=== PATIENT | female | born 1990 | race African-American/Black ===

== ENCOUNTER 2018-12-10 07:37 | Emergency (ER) | payer MEDICAID ==
[~2018-12-10] VITALS: Ht 157.5 cm; Wt 130.0 kg
[2018-12-10 07:39] VITALS: BP 106/67
[2018-12-10] MEDS ORDERED: QUET100T MT (22:44)
[2018-12-10] MEDS ORDERED: BUPR150T3 MT (22:44)
[2018-12-10] MEDS ORDERED: TRAZ-212 MT (22:44)
== END 2018-12-10 07:48 | disposition left against medical advice (07) ==
LOC: ER 07:44
DX: R06.02 Shortness of breath (principal); Z53.21 Procedure and treatment not carried out due to patient leaving prior to being seen by health care provider

== ENCOUNTER 2018-12-10 08:34 | Inpatient (IN) | payer MEDICAID, OTHER ==
[~2018-12-10] VITALS: Ht 160 cm; Wt 64.4 kg
[2018-12-10] MEDS ORDERED: KETOROLAC 60MG/2ML VIAL IM ONE ×2 (09:30→11:45)
[2018-12-10] MEDS ORDERED: ACETAMINOPHEN 325MG TABLET PO ONE (09:45)
[2018-12-10 10:44] LABS: *BARBITURATES SCREEN URINE NEGATIVE (NEGATIVE); *BENZODIAZEPINES SCREEN URINE NEGATIVE (NEGATIVE); METHADONE URINE SCREEN NEGATIVE (NEGATIVE); OPIATES URINE SCREEN NEGATIVE (NEGATIVE)
[2018-12-10 10:45] LABS: PHENCYCLIDINE URINE SCREEN NEGATIVE (NEGATIVE)
[2018-12-10 10:53] LABS: *AMPHETAMINES SCREEN URINE PRESUMTIVE POSITIVE (NEGATIVE); *COCAINE SCREEN URINE PRESUMTIVE POSITIVE (NEGATIVE)
[2018-12-10 10:56] LABS: CANNABINOID URINE SCREEN PRESUMTIVE POSITIVE (NEGATIVE)
[2018-12-10] MEDS ORDERED: SODIUM CHLORIDE 0.9% 1,000 ML IV ONE (11:53)
[2018-12-10] MEDS ORDERED: ETOMIDATE 2MG/ML 10ML VIAL IV ONE (12:00)
[2018-12-10] MEDS ORDERED: HYDROCODONE/ACETAMINOPHEN 5/325MG TABLET PO ONE (12:00)
[2018-12-10] MEDS ORDERED: MORPHINE SULFATE 4 MG/ML CPJ (NOT FOR IM USE) IV ONE (12:30)
[2018-12-10] MEDS ORDERED: ONDANSETRON HCL 4MG/2ML INJ IV ONE (12:30)
[2018-12-10 12:32] LABS: CHLORIDE 107 mEq/L (98-107)
[2018-12-10 12:37] LABS: BASOPHILS % 0.4 % (0.0-2.0); EOSINOPHILS % 0.1 % (0.0-5.0); HEMATOCRIT. 41.5 % (36.0-48.0); LYMPHOCYTES % 10.1 % (20.0-50.0); MEAN CORPUSCULAR HEMOGLOBIN 30.7 pg (28.0-32.0); MEAN CORPUSCULAR VOLUME 90.9 fL (81.0-99.0); MEAN PLATELET VOLUME 8.8 fl (7.4-10.4); MONOCYTES % 6.9 % (2.0-8.0); NEUTROPHILS % 82.5 % (40.0-76.0); PLATELET 277 x1000/uL (130-400); RED BLOOD CELL COUNT 4.57 mill/uL (4.2-5.4); RED CELL DISTRIBUTION WIDTH 13.7 % (11.6-14.6)
[2018-12-10] MEDS ORDERED: LORAZEPAM 2MG/ML CPJ ONE (12:43)
[2018-12-10] MEDS ORDERED: LORAZEPAM 2MG/ML CPJ IV ONE (12:45)
[2018-12-10 12:52] LABS: PARTIAL THROMBOPLASTIN TIME 24.4 sec (23.4-31.0); PROTHROMBIN TIME 10.5 sec (9.6-11.0)
[2018-12-10] MEDS ORDERED: KETOROLAC 30MG/ML VIAL IV ONE (14:45)
[2018-12-10] MEDS: MORPHINE SULFATE 4 MG/ML CPJ (NOT FOR IM USE) IV PRN (20:16)
[2018-12-10] MEDS ORDERED: MORPHINE SULFATE 2 MG/ML CPJ (NOT FOR IM USE) IV PRN (21:45)
[2018-12-10 22:00] VITALS: BP 128/86
[2018-12-10] MEDS ORDERED: TRAZ-212 MT (22:44)
[2018-12-10] MEDS ORDERED: QUET100T MT (22:44)
[2018-12-10] MEDS ORDERED: BUPR150T3 MT (22:44)
[2018-12-11] VITALS: BP 113/61
[2018-12-11] MEDS: ONDANSETRON HCL 4MG TABLET PO PRN ×3 (00:22→21:17)
[2018-12-11] MEDS: MORPHINE SULFATE 4 MG/ML CPJ (NOT FOR IM USE) IV PRN ×3 (00:34→18:31)
[2018-12-11] MEDS: HYDROCODONE/ACETAMINOPHEN 5/325MG TABLET PO PRN ×3 (03:45→21:18)
[2018-12-11 04:00] VITALS: BP 118/75
[2018-12-11 08:00] VITALS: BP 113/80
[2018-12-11 12:02] VITALS: BP 110/59
[2018-12-11 16:00] VITALS: BP 98/60
[2018-12-11] MEDS ORDERED: BUPROPION HCL 150MG SR TABLET PO SCH (17:00)
[2018-12-11 18:39] LABS: CLARITY URINE CLEAR (CLEAR); COLOR URINE YELLOW (YELLOW); KETONES URINE NEGATIVE (NEGATIVE); LEUKOCYTE ESTERASE URINE TRACE (NEGATIVE); NITRITE URINE NEGATIVE (NEGATIVE); OCCULT BLOOD URINE 1+ (NEGATIVE); PH URINE 5.5 (4.5-8.0); PROTEIN URINE NEGATIVE (NEGATIVE); SPECIFIC GRAVITY URINE 1.004 (1.005-1.030); UROBILINOGEN URINE 0.2 E.U./dL (0.2-1.0)
[2018-12-11 19:14] LABS: BASOPHILS % 0.6 % (0.0-2.0); EOSINOPHILS % 0.8 % (0.0-5.0); HEMATOCRIT. 38.1 % (36.0-48.0); HEMOGLOBIN. 12.8 g/dL (12.0-16.0); LYMPHOCYTES % 15.3 % (20.0-50.0); MEAN CORPUSCULAR HEMOGLOBIN 30.8 pg (28.0-32.0); MEAN CORPUSCULAR VOLUME 91.2 fL (81.0-99.0); MEAN PLATELET VOLUME 9.1 fl (7.4-10.4); MONOCYTES % 10.2 % (2.0-8.0); NEUTROPHILS % 73.1 % (40.0-76.0); PLATELET 230 x1000/uL (130-400); RED BLOOD CELL COUNT 4.18 mill/uL (4.2-5.4); RED CELL DISTRIBUTION WIDTH 13.3 % (11.6-14.6)
[2018-12-11 20:00] VITALS: BP 101/63
[2018-12-11] MEDS: BUPROPION HCL 150MG SR TABLET PO SCH (20:00)
[2018-12-11] MEDS: QUETIAPINE FUMARATE 100MG TABLET PO SCH (21:18)
[2018-12-11] MEDS: TRAZODONE HCL 50MG TABLET PO SCH (21:18)
[2018-12-12] VITALS: BP 99/58
[2018-12-12 04:00] VITALS: BP 99/59
[2018-12-12 08:00] VITALS: BP 97/53
[2018-12-12] MEDS: BUPROPION HCL 150MG SR TABLET PO SCH ×2 (08:21→20:52)
[2018-12-12] MEDS ORDERED: BACITRACIN 50,000 UNITS/VIAL ONE (09:11)
[2018-12-12] MEDS ORDERED: NORMAL SALINE 0.9% 10 ML SYR ONE (09:11)
[2018-12-12] MEDS ORDERED: VANCOMYCIN HCL 500 MG/VIAL ONE (09:11)
[2018-12-12] MEDS ORDERED: BUPIVACAINE HCL/PF 0.25% (2.5MG/ML) 10ML ONE (09:11)
[2018-12-12 10:11] LABS: *AMPHETAMINES SCREEN URINE NEGATIVE (NEGATIVE); *BARBITURATES SCREEN URINE NEGATIVE (NEGATIVE); *BENZODIAZEPINES SCREEN URINE NEGATIVE (NEGATIVE); METHADONE URINE SCREEN NEGATIVE (NEGATIVE)
[2018-12-12 10:12] LABS: CANNABINOID URINE SCREEN NEGATIVE (NEGATIVE); PHENCYCLIDINE URINE SCREEN NEGATIVE (NEGATIVE)
[2018-12-12 10:18] LABS: *COCAINE SCREEN URINE PRESUMTIVE POSITIVE (NEGATIVE)
[2018-12-12 10:19] LABS: OPIATES URINE SCREEN PRESUMTIVE POSITIVE (NEGATIVE)
[2018-12-12] MEDS: MORPHINE SULFATE 4 MG/ML CPJ (NOT FOR IM USE) IV PRN ×2 (10:21→18:00)
[2018-12-12] MEDS: SODIUM CHLORIDE 0.9% 1,000 ML IV SCH ×2 (11:52→18:09)
[2018-12-12] MEDS: ENOXAPARIN 30MG/0.3ML SYR SUBCUT SCH (11:52)
[2018-12-12] MEDS: HYDROCODONE/ACETAMINOPHEN 5/325MG TABLET PO PRN ×2 (11:58→20:44)
[2018-12-12 12:00] VITALS: BP 101/61
[2018-12-12 13:14] LABS: BASOPHILS % 0.8 % (0.0-2.0); EOSINOPHILS % 3.1 % (0.0-5.0); HEMOGLOBIN. 11.9 g/dL (12.0-16.0); LYMPHOCYTES % 22.9 % (20.0-50.0); MEAN CORPUSCULAR HEMOGLOBIN 30.2 pg (28.0-32.0); MEAN CORPUSCULAR VOLUME 91.2 fL (81.0-99.0); MEAN PLATELET VOLUME 8.4 fl (7.4-10.4); MONOCYTES % 11.6 % (2.0-8.0); NEUTROPHILS % 61.6 % (40.0-76.0); PLATELET 226 x1000/uL (130-400); RED BLOOD CELL COUNT 3.94 mill/uL (4.2-5.4); RED CELL DISTRIBUTION WIDTH 13.4 % (11.6-14.6)
[2018-12-12 13:23] LABS: CHLORIDE 109 mEq/L (98-107)
[2018-12-12 13:30] LABS: PHOSPHORUS 4.3 mg/dL (2.5-4.9)
[2018-12-12 14:09] LABS: CREATINE KINASE 12029 IU/L (26-192)
[2018-12-12 16:00] VITALS: BP 90/64
[2018-12-12 20:00] VITALS: BP 96/59
[2018-12-12] MEDS: QUETIAPINE FUMARATE 100MG TABLET PO SCH ×2 (20:43→20:51)
[2018-12-12] MEDS: TRAZODONE HCL 50MG TABLET PO SCH ×2 (20:44→20:51)
[2018-12-13] VITALS: BP 105/66
[2018-12-13] MEDS: HYDROCODONE/ACETAMINOPHEN 5/325MG TABLET PO PRN ×4 (01:41→20:02)
[2018-12-13 04:00] VITALS: BP 93/50
[2018-12-13 06:10] LABS: BASOPHILS % 0.8 % (0.0-2.0); EOSINOPHILS % 5.7 % (0.0-5.0); HEMATOCRIT. 30.1 % (36.0-48.0); HEMOGLOBIN. 10.2 g/dL (12.0-16.0); LYMPHOCYTES % 33.9 % (20.0-50.0); MEAN CORPUSCULAR HEMOGLOBIN 30.9 pg (28.0-32.0); MEAN CORPUSCULAR VOLUME 91.4 fL (81.0-99.0); MEAN PLATELET VOLUME 8.7 fl (7.4-10.4); MONOCYTES % 11.5 % (2.0-8.0); NEUTROPHILS % 48.1 % (40.0-76.0); PLATELET 200 x1000/uL (130-400); RED BLOOD CELL COUNT 3.29 mill/uL (4.2-5.4); RED CELL DISTRIBUTION WIDTH 13.3 % (11.6-14.6)
[2018-12-13 06:57] LABS: PHOSPHORUS 3.8 mg/dL (2.5-4.9)
[2018-12-13 08:00] VITALS: BP 100/68
[2018-12-13] MEDS: SODIUM CHLORIDE 0.9% 1,000 ML IV SCH ×3 (08:02→20:36)
[2018-12-13] MEDS: BUPROPION HCL 150MG SR TABLET PO SCH ×2 (08:43→22:40)
[2018-12-13] MEDS: ENOXAPARIN 30MG/0.3ML SYR SUBCUT SCH (08:44)
[2018-12-13 12:00] VITALS: BP 95/64
[2018-12-13] MEDS: ONDANSETRON HCL 4MG TABLET PO PRN (14:05)
[2018-12-13 15:08] LABS: *AMPHETAMINES SCREEN URINE NEGATIVE (NEGATIVE); *BARBITURATES SCREEN URINE NEGATIVE (NEGATIVE); *BENZODIAZEPINES SCREEN URINE NEGATIVE (NEGATIVE); METHADONE URINE SCREEN NEGATIVE (NEGATIVE)
[2018-12-13 15:09] LABS: *COCAINE SCREEN URINE PRESUMTIVE POSITIVE (NEGATIVE); CANNABINOID URINE SCREEN NEGATIVE (NEGATIVE); OPIATES URINE SCREEN PRESUMTIVE POSITIVE (NEGATIVE); PHENCYCLIDINE URINE SCREEN NEGATIVE (NEGATIVE)
[2018-12-13 16:00] VITALS: BP 103/75
[2018-12-13] MEDS: MORPHINE SULFATE 4 MG/ML CPJ (NOT FOR IM USE) IV PRN (18:31)
[2018-12-13 20:00] VITALS: BP 117/83
[2018-12-13] MEDS: QUETIAPINE FUMARATE 100MG TABLET PO SCH (22:40)
[2018-12-13] MEDS: TRAZODONE HCL 50MG TABLET PO SCH (22:40)
[2018-12-14] VITALS: BP 113/78
[2018-12-14] MEDS: HYDROCODONE/ACETAMINOPHEN 5/325MG TABLET PO PRN ×4 (01:25→15:16)
[2018-12-14] MEDS: SODIUM CHLORIDE 0.9% 1,000 ML IV SCH ×3 (03:06→23:46)
[2018-12-14 04:00] VITALS: BP 108/55
[2018-12-14 08:00] VITALS: BP 108/74
[2018-12-14 08:14] LABS: BASOPHILS % 0.5 % (0.0-2.0); EOSINOPHILS % 6.3 % (0.0-5.0); HEMATOCRIT. 31.7 % (36.0-48.0); HEMOGLOBIN. 10.5 g/dL (12.0-16.0); LYMPHOCYTES % 19.6 % (20.0-50.0); MEAN CORPUSCULAR HEMOGLOBIN 30.6 pg (28.0-32.0); MEAN CORPUSCULAR VOLUME 92.1 fL (81.0-99.0); MONOCYTES % 9.6 % (2.0-8.0); PLATELET 207 x1000/uL (130-400); RED BLOOD CELL COUNT 3.45 mill/uL (4.2-5.4); RED CELL DISTRIBUTION WIDTH 13.5 % (11.6-14.6)
[2018-12-14 08:53] LABS: PHOSPHORUS 3.7 mg/dL (2.5-4.9)
[2018-12-14] MEDS: BUPROPION HCL 150MG SR TABLET PO SCH ×2 (09:17→21:51)
[2018-12-14] MEDS: ENOXAPARIN 40MG/0.4ML SYR SUBCUT SCH (09:19)
[2018-12-14 12:00] VITALS: BP 113/79
[2018-12-14] MEDS: ONDANSETRON HCL 4MG TABLET PO PRN (15:35)
[2018-12-14 16:00] VITALS: BP 119/79
[2018-12-14 16:56] LABS: *AMPHETAMINES SCREEN URINE NEGATIVE (NEGATIVE); *BARBITURATES SCREEN URINE NEGATIVE (NEGATIVE)
[2018-12-14 16:57] LABS: *BENZODIAZEPINES SCREEN URINE NEGATIVE (NEGATIVE); *COCAINE SCREEN URINE NEGATIVE (NEGATIVE); CANNABINOID URINE SCREEN NEGATIVE (NEGATIVE); METHADONE URINE SCREEN NEGATIVE (NEGATIVE); PHENCYCLIDINE URINE SCREEN NEGATIVE (NEGATIVE)
[2018-12-14 17:05] LABS: OPIATES URINE SCREEN PRESUMTIVE POSITIVE (NEGATIVE)
[2018-12-14 20:00] VITALS: BP 127/87
[2018-12-14] MEDS: TRAZODONE HCL 50MG TABLET PO SCH (21:51)
[2018-12-14] MEDS: QUETIAPINE FUMARATE 100MG TABLET PO SCH (21:51)
[2018-12-15] VITALS: BP 121/85
[2018-12-15] MEDS: HYDROCODONE/ACETAMINOPHEN 5/325MG TABLET PO PRN ×3 (01:17→21:13)
[2018-12-15 04:00] VITALS: BP 127/76
[2018-12-15 06:41] LABS: BASOPHILS % 0.9 % (0.0-2.0); EOSINOPHILS % 5.6 % (0.0-5.0); HEMATOCRIT. 31.6 % (36.0-48.0); HEMOGLOBIN. 10.8 g/dL (12.0-16.0); LYMPHOCYTES % 28.6 % (20.0-50.0); MEAN CORPUSCULAR VOLUME 90.7 fL (81.0-99.0); MEAN PLATELET VOLUME 8.4 fl (7.4-10.4); NEUTROPHILS % 54.9 % (40.0-76.0); PLATELET 227 x1000/uL (130-400); RED BLOOD CELL COUNT 3.48 mill/uL (4.2-5.4); RED CELL DISTRIBUTION WIDTH 13.2 % (11.6-14.6)
[2018-12-15] MEDS: SODIUM CHLORIDE 0.9% 1,000 ML IV SCH ×2 (06:54→16:01)
[2018-12-15 07:46] LABS: PHOSPHORUS 4.2 mg/dL (2.5-4.9)
[2018-12-15 08:00] VITALS: BP 141/91
[2018-12-15] MEDS: ENOXAPARIN 40MG/0.4ML SYR SUBCUT SCH (09:00)
[2018-12-15] MEDS: MORPHINE SULFATE 4 MG/ML CPJ (NOT FOR IM USE) IV PRN (09:11)
[2018-12-15] MEDS: BUPROPION HCL 150MG SR TABLET PO SCH ×2 (09:11→21:12)
[2018-12-15] MEDS ORDERED: MAGNESIUM 2 G PREMIX 50 ML IV NR (10:00)
[2018-12-15 12:00] VITALS: BP 132/83
[2018-12-15 16:00] VITALS: BP 135/81
[2018-12-15 20:00] VITALS: BP 129/88
[2018-12-15] MEDS: TRAZODONE HCL 50MG TABLET PO SCH (21:12)
[2018-12-15] MEDS: QUETIAPINE FUMARATE 100MG TABLET PO SCH (21:12)
[2018-12-16] MEDS ORDERED: MORPHINE SULFATE 4 MG/ML CPJ (NOT FOR IM USE) IV PRN
[2018-12-16] MEDS ORDERED: HYDROCODONE/ACETAMINOPHEN 5/325MG TABLET PO PRN
[2018-12-16 04:00] VITALS: BP 122/84
[2018-12-16 06:10] LABS: BASOPHILS % 0.9 % (0.0-2.0); EOSINOPHILS % 6.2 % (0.0-5.0); HEMATOCRIT. 34.8 % (36.0-48.0); HEMOGLOBIN. 11.8 g/dL (12.0-16.0); LYMPHOCYTES % 27.1 % (20.0-50.0); MEAN CORPUSCULAR HEMOGLOBIN 30.9 pg (28.0-32.0); MEAN CORPUSCULAR VOLUME 90.9 fL (81.0-99.0); MEAN PLATELET VOLUME 8.3 fl (7.4-10.4); MONOCYTES % 10.6 % (2.0-8.0); NEUTROPHILS % 55.2 % (40.0-76.0); PLATELET 256 x1000/uL (130-400); RED BLOOD CELL COUNT 3.83 mill/uL (4.2-5.4); RED CELL DISTRIBUTION WIDTH 13.4 % (11.6-14.6)
[2018-12-16 06:29] LABS: CHLORIDE 107 mEq/L (98-107)
[2018-12-16 06:49] LABS: PHOSPHORUS 3.8 mg/dL (2.5-4.9)
[2018-12-16 08:00] VITALS: BP 124/76
[2018-12-16] MEDS: BUPROPION HCL 150MG SR TABLET PO SCH ×2 (08:23→21:00)
[2018-12-16] MEDS: ENOXAPARIN 40MG/0.4ML SYR SUBCUT SCH (09:00)
[2018-12-16 12:00] VITALS: BP 135/84
[2018-12-16] MEDS: BISACODYL 10MG SUPP PR SCH (13:30)
[2018-12-16] MEDS ORDERED: LACTULOSE 20G/30ML UDC PO PRN (13:30)
[2018-12-16] MEDS ORDERED: MAGNESIUM 2 G PREMIX 50 ML IV SCH (14:00)
[2018-12-16] MEDS ORDERED: BUPIVACAINE HCL/PF 0.5% (5MG/ML) 10ML ONE (14:15)
[2018-12-16] MEDS ORDERED: VANCOMYCIN HCL 500 MG/VIAL ONE (14:16)
[2018-12-16 16:00] VITALS: BP 140/97
[2018-12-16] MEDS: DOCUSATE SODIUM 100MG CAPSULE PO SCH (17:00)
[2018-12-16] MEDS ORDERED: CEFAZOLIN SODIUM 1000MG/VIAL ONE (17:44)
[2018-12-16] MEDS ORDERED: FENTANYL CITRATE/PF 50MCG/ML 2ML VIAL ONE ×2 (17:44→19:39)
[2018-12-16] MEDS ORDERED: MIDAZOLAM HCL 2 MG/2 ML VIAL ONE (17:44)
[2018-12-16] MEDS ORDERED: SODIUM CHLORIDE 0.9% 10ML VIAL ONE (17:44)
[2018-12-16] MEDS ORDERED: PROPOFOL 200MG/20ML VIAL IV ONE (17:45)
[2018-12-16] MEDS ORDERED: DEXAMETHASONE 4MG/ML 1ML VIAL ONE (17:45)
[2018-12-16] MEDS ORDERED: LIDOCAINE HCL/PF 1% 10 MG/ML 5ML VIAL ONE (17:45)
[2018-12-16] MEDS ORDERED: ROCURONIUM BROMIDE 10MG/ML VIAL 5ML IV ONE (17:53)
[2018-12-16] MEDS ORDERED: METOCLOPRAMIDE HCL 10MG/2ML VIAL ONE (18:08)
[2018-12-16] MEDS ORDERED: ONDANSETRON HCL 4MG/2ML INJ ONE (18:08)
[2018-12-16] MEDS ORDERED: BACITRACIN 50,000 UNITS/VIAL ONE (18:16)
[2018-12-16] MEDS ORDERED: TRAMADOL 50MG TABLET PO PRN (19:45)
[2018-12-16 20:00] VITALS: BP 133/86
[2018-12-16] MEDS: HYDROMORPHONE HCL/PF 2MG/ML CPJ IV PRN ×4 (20:02→22:31)
[2018-12-16] MEDS ORDERED: MEPERIDINE HCL/PF 25MG/ML CPJ IV NR (20:30)
[2018-12-16] MEDS: TRAZODONE HCL 50MG TABLET PO SCH (21:00)
[2018-12-16] MEDS: QUETIAPINE FUMARATE 100MG TABLET PO SCH (21:00)
[2018-12-16] MEDS ORDERED: CEFAZOLIN SODIUM 1000MG/VIAL IV SCH (22:00)
[2018-12-16] MEDS: CEFAZOLIN 1000MG PREMIX 50 ML IV SCH (22:32)
[2018-12-17] VITALS: BP 144/89
[2018-12-17] MEDS: HYDROCODONE/ACETAMINOPHEN 10/325MG TABLET PO PRN ×4 (00:27→19:52)
[2018-12-17] MEDS ORDERED: MORPHINE SULFATE 4 MG/ML CPJ (NOT FOR IM USE) IV PRN (03:30)
[2018-12-17 04:00] VITALS: BP 134/86
[2018-12-17] MEDS: HYDROMORPHONE HCL/PF 2MG/ML CPJ IV PRN ×6 (04:33→22:25)
[2018-12-17] MEDS: CEFAZOLIN 1000MG PREMIX 50 ML IV SCH ×2 (05:09→13:14)
[2018-12-17 05:39] LABS: BASOPHILS % 0.5 % (0.0-2.0); HEMATOCRIT. 33.7 % (36.0-48.0); HEMOGLOBIN. 11.2 g/dL (12.0-16.0); LYMPHOCYTES % 9.7 % (20.0-50.0); MEAN CORPUSCULAR HEMOGLOBIN 30.2 pg (28.0-32.0); MEAN CORPUSCULAR VOLUME 90.8 fL (81.0-99.0); MEAN PLATELET VOLUME 8.3 fl (7.4-10.4); MONOCYTES % 7.9 % (2.0-8.0); NEUTROPHILS % 81.9 % (40.0-76.0); PLATELET 270 x1000/uL (130-400); RED BLOOD CELL COUNT 3.72 mill/uL (4.2-5.4)
[2018-12-17 06:00] LABS: CHLORIDE 101 mEq/L (98-107)
[2018-12-17 06:09] LABS: PHOSPHORUS 2.4 mg/dL (2.5-4.9)
[2018-12-17 08:00] VITALS: BP 130/84
[2018-12-17] MEDS: DOCUSATE SODIUM 100MG CAPSULE PO SCH ×2 (08:45→16:16)
[2018-12-17] MEDS: BUPROPION HCL 150MG SR TABLET PO SCH ×2 (08:45→21:11)
[2018-12-17] MEDS: ENOXAPARIN 40MG/0.4ML SYR SUBCUT SCH (08:46)
[2018-12-17 09:04] LABS: CREATINE KINASE 16429 IU/L (26-192)
[2018-12-17 11:32] LABS: CLARITY URINE CLEAR (CLEAR); COLOR URINE YELLOW (YELLOW); KETONES URINE NEGATIVE (NEGATIVE); LEUKOCYTE ESTERASE URINE NEGATIVE (NEGATIVE); NITRITE URINE NEGATIVE (NEGATIVE); OCCULT BLOOD URINE NEGATIVE (NEGATIVE); PROTEIN URINE NEGATIVE (NEGATIVE); SPECIFIC GRAVITY URINE 1.004 (1.005-1.030); UROBILINOGEN URINE 0.2 E.U./dL (0.2-1.0)
[2018-12-17 12:00] VITALS: BP 124/81
[2018-12-17] MEDS ORDERED: POTASSIUM PHOS,M-BASIC-D-BASIC 20 MMOL in DEXT 5% WATER 243.3333 ML IV NR ×2 (12:15→14:30)
[2018-12-17] MEDS ORDERED: MAGNESIUM 2 G PREMIX 50 ML IV NR (13:30)
[2018-12-17 16:00] VITALS: BP 123/79
[2018-12-17] MEDS: SODIUM CHLORIDE 0.9% 1,000 ML IV SCH (16:16)
[2018-12-17 20:00] VITALS: BP 119/82
[2018-12-17] MEDS: QUETIAPINE FUMARATE 100MG TABLET PO SCH (21:11)
[2018-12-17] MEDS: TRAZODONE HCL 50MG TABLET PO SCH (21:11)
[2018-12-18] VITALS: BP 127/82
[2018-12-18] MEDS: HYDROMORPHONE HCL/PF 2MG/ML CPJ IV PRN ×6 (01:53→20:17)
[2018-12-18] MEDS: SODIUM CHLORIDE 0.9% 1,000 ML IV SCH ×4 (03:50→22:18)
[2018-12-18] MEDS: HYDROCODONE/ACETAMINOPHEN 10/325MG TABLET PO PRN ×3 (03:54→22:55)
[2018-12-18 04:00] VITALS: BP 131/89
[2018-12-18 06:31] LABS: BASOPHILS % 0.9 % (0.0-2.0); EOSINOPHILS % 2.8 % (0.0-5.0); HEMOGLOBIN. 10.7 g/dL (12.0-16.0); LYMPHOCYTES % 18.1 % (20.0-50.0); MEAN CORPUSCULAR HEMOGLOBIN 30.5 pg (28.0-32.0); MEAN CORPUSCULAR VOLUME 90.9 fL (81.0-99.0); MEAN PLATELET VOLUME 7.9 fl (7.4-10.4); MONOCYTES % 10.9 % (2.0-8.0); NEUTROPHILS % 67.3 % (40.0-76.0); PLATELET 286 x1000/uL (130-400); RED BLOOD CELL COUNT 3.52 mill/uL (4.2-5.4)
[2018-12-18 06:36] LABS: CHLORIDE 103 mEq/L (98-107)
[2018-12-18 06:44] LABS: PHOSPHORUS 2.8 mg/dL (2.5-4.9)
[2018-12-18 07:08] LABS: CREATINE KINASE 6058 IU/L (26-192)
[2018-12-18 08:00] VITALS: BP 113/72
[2018-12-18] MEDS: BUPROPION HCL 150MG SR TABLET PO SCH ×2 (09:11→20:23)
[2018-12-18] MEDS: ENOXAPARIN 40MG/0.4ML SYR SUBCUT SCH (09:11)
[2018-12-18] MEDS: DOCUSATE SODIUM 100MG CAPSULE PO SCH ×2 (09:12→17:10)
[2018-12-18] MEDS ORDERED: MAGNESIUM 4 G PREMIX 100 ML IV NR (11:15)
[2018-12-18 12:00] VITALS: BP 138/84
[2018-12-18 16:00] VITALS: BP 126/81
[2018-12-18 20:00] VITALS: BP 131/69
[2018-12-18] MEDS: TRAZODONE HCL 50MG TABLET PO SCH (20:23)
[2018-12-18] MEDS: QUETIAPINE FUMARATE 100MG TABLET PO SCH (20:23)
[2018-12-19] VITALS: BP 109/69
[2018-12-19] MEDS: HYDROMORPHONE HCL/PF 2MG/ML CPJ IV PRN ×3 (01:32→08:52)
[2018-12-19 04:00] VITALS: BP 115/72
[2018-12-19] MEDS: SODIUM CHLORIDE 0.9% 1,000 ML IV SCH (04:33)
[2018-12-19 07:27] LABS: BASOPHILS % 0.9 % (0.0-2.0); EOSINOPHILS % 4.4 % (0.0-5.0); HEMATOCRIT. 31.9 % (36.0-48.0); HEMOGLOBIN. 10.6 g/dL (12.0-16.0); LYMPHOCYTES % 19.6 % (20.0-50.0); MEAN CORPUSCULAR HEMOGLOBIN 30.4 pg (28.0-32.0); MEAN CORPUSCULAR VOLUME 91.7 fL (81.0-99.0); MEAN PLATELET VOLUME 7.9 fl (7.4-10.4); MONOCYTES % 12.2 % (2.0-8.0); NEUTROPHILS % 62.9 % (40.0-76.0); PLATELET 307 x1000/uL (130-400); RED BLOOD CELL COUNT 3.48 mill/uL (4.2-5.4); RED CELL DISTRIBUTION WIDTH 12.8 % (11.6-14.6)
[2018-12-19 07:34] LABS: CHLORIDE 107 mEq/L (98-107)
[2018-12-19 07:58] LABS: CREATINE KINASE 3334 IU/L (26-192)
[2018-12-19 08:00] VITALS: BP 131/89
[2018-12-19] MEDS: BUPROPION HCL 150MG SR TABLET PO SCH (08:51)
[2018-12-19] MEDS: DOCUSATE SODIUM 100MG CAPSULE PO SCH (08:51)
[2018-12-19] MEDS: ENOXAPARIN 40MG/0.4ML SYR SUBCUT SCH (08:57)
[2018-12-19] MEDS: HYDROCODONE/ACETAMINOPHEN 10/325MG TABLET PO PRN (10:24)
[2018-12-19 10:35] VITALS: BP 131/89
[2018-12-19 12:00] VITALS: BP 116/71
== END 2018-12-19 13:13 | disposition home or self-care (01) | DRG 313 ==
LOC: ER 08:34 → EDBEDREQ 13:54 → EEVIPCON 16:40 → 6EST 16:40 → EDBEDREQ 16:48 → ENRESERV 17:27 → 6EST 12-11 09:28
PROVIDERS: ADMIT Internal Medicine; ATTEND Internal Medicine
PROC: 0QSG06Z Reposition Right Tibia with Intramedullary Internal Fixation Device, Open Approach (ICD-10-PCS; principal; 2018-12-16)
DX: S82.301A Unspecified fracture of lower end of right tibia, initial encounter for closed fracture (principal); N17.0 Acute kidney failure with tubular necrosis; M62.82 Rhabdomyolysis; E83.39 Other disorders of phosphorus metabolism; E83.42 Hypomagnesemia; S82.831A Other fracture of upper and lower end of right fibula, initial encounter for closed fracture; D72.829 Elevated white blood cell count, unspecified; F31.9 Bipolar disorder, unspecified; W01.0XXA Fall on same level from slipping, tripping and stumbling without subsequent striking against object, initial encounter; F14.129 Cocaine abuse with intoxication, unspecified; F17.210 Nicotine dependence, cigarettes, uncomplicated; Y93.89 Activity, other specified; Y92.89 Other specified places as the place of occurrence of the external cause; Y99.8 Other external cause status; Z82.49 Family history of ischemic heart disease and other diseases of the circulatory system; R74.0 Nonspecific elevation of levels of transaminase and lactic acid dehydrogenase [LDH]
CPT/HCPCS: 36415; 71045; 73590; 73610; 73630; 76000; 76700; 76770; 80048; 80305; 82550; 83735; 84100; 93005; 93970; 96374; 96375; 97162; 97530; 97535; 99285; C1713; C1769; C1893; J0690; J1100; J1170; J1650; J1885; J2060; J2250; J2270; J2405; J2704; J2765; J3010; J3370; J3475; J3490; J7030; J7040; J7060; Q0162

== ENCOUNTER 2018-12-22 21:28 | Emergency (ER) | payer MEDICAID, OTHER ==
[~2018-12-22] VITALS: Ht 160 cm; Wt 64.0 kg
[~2018-12-22 21:28] MED LIST: BUPR150T3 MT; QUET100T MT; TRAZ-212 MT
[2018-12-22] MEDS ORDERED: HYDROCODONE/ACETAMINOPHEN 5/325MG TABLET PO ONE (23:45)
[2018-12-23 00:15] LABS: BASOPHILS % 0.6 % (0.0-2.0); EOSINOPHILS % 2.2 % (0.0-5.0); HEMATOCRIT. 34.6 % (36.0-48.0); HEMOGLOBIN. 11.7 g/dL (12.0-16.0); LYMPHOCYTES % 13.8 % (20.0-50.0); MEAN CORPUSCULAR HEMOGLOBIN 30.6 pg (28.0-32.0); MEAN CORPUSCULAR VOLUME 90.4 fL (81.0-99.0); MEAN PLATELET VOLUME 7.6 fl (7.4-10.4); MONOCYTES % 6.9 % (2.0-8.0); NEUTROPHILS % 76.5 % (40.0-76.0); PLATELET 480 x1000/uL (130-400); RED BLOOD CELL COUNT 3.83 mill/uL (4.2-5.4); RED CELL DISTRIBUTION WIDTH 13.1 % (11.6-14.6)
[2018-12-23] MEDS ORDERED: ONDANSETRON HCL 4MG/2ML INJ IM ONE (02:15)
[2018-12-23] MEDS ORDERED: MORPHINE SULFATE 10 MG/ML CPJ IM ONE (02:15)
[2018-12-23 02:46] VITALS: BP 115/79
[2018-12-23] MEDS ORDERED: LAMO100T65 PO (22:54)
== END 2018-12-23 02:49 | disposition home or self-care (01) ==
LOC: ER 22:45
DX: G89.18 Other acute postprocedural pain (principal); M79.604 Pain in right leg; F17.200 Nicotine dependence, unspecified, uncomplicated; Z98.890 Other specified postprocedural states; Z79.899 Other long term (current) drug therapy
CPT/HCPCS: 36415; 85025; 96372; 99283; J2270

== ENCOUNTER 2019-01-16 11:39 | Emergency (ER) | payer MEDICAID ==
[~2019-01-16] VITALS: Ht 160 cm; Wt 62.0 kg
[~2019-01-16 11:39] MED LIST changes: +LAMO100T65 PO; -TRAZ-212 MT; +TRAZ-251 MT
[2019-01-16 12:11] VITALS: BP 106/69
[2019-01-16] MEDS ORDERED: IBUPROFEN 600MG TABLET PO STA (13:29)
[2019-01-16] MEDS ORDERED: MORPHINE SULFATE 2 MG/ML CPJ (NOT FOR IM USE) IV ONE (13:45)
== END 2019-01-16 18:10 | disposition home or self-care (01) ==
LOC: ER 11:39
DX: M96.671 Fracture of tibia or fibula following insertion of orthopedic implant, joint prosthesis, or bone plate, right leg (principal); F17.210 Nicotine dependence, cigarettes, uncomplicated; F12.10 Cannabis abuse, uncomplicated; Z71.6 Tobacco abuse counseling; F31.9 Bipolar disorder, unspecified; Y83.8 Other surgical procedures as the cause of abnormal reaction of the patient, or of later complication, without mention of misadventure at the time of the procedure; Y92.018 Other place in single-family (private) house as the place of occurrence of the external cause
CPT/HCPCS: 73590; 73610; 81025; 93971; 96374; 99284; 99406; J2270

== ENCOUNTER 2019-03-26 06:16 | Emergency (ER) | payer MEDICAID, OTHER ==
[~2019-03-26] VITALS: Ht 160 cm; Wt 60.0 kg
[2019-03-26] MEDS ORDERED: FENTANYL CITRATE/PF 50MCG/ML 2ML VIAL IV ONE (07:30)
[2019-03-26] MEDS ORDERED: KETOROLAC 15MG/ML VIAL IV ONE (07:30)
[2019-03-26] MEDS ORDERED: MORPHINE SULFATE 4 MG/ML CPJ (NOT FOR IM USE) IV ONE (08:30)
[2019-03-26] MEDS ORDERED: ONDANSETRON HCL 4MG/2ML INJ IV ONE (08:30)
[2019-03-26 10:43] VITALS: BP 97/56
== END 2019-03-26 10:48 | disposition home or self-care (01) ==
LOC: ER 07:25
DX: M79.661 Pain in right lower leg (principal); R60.0 Localized edema; F17.200 Nicotine dependence, unspecified, uncomplicated; Z98.890 Other specified postprocedural states; Z79.899 Other long term (current) drug therapy
CPT/HCPCS: 93971; 96374; 96375; 99284; J1885; J2270; J2405; J3010

== ENCOUNTER 2019-05-10 13:11 | Emergency (ER) | payer MEDICAID, OTHER ==
[~2019-05-10] VITALS: Ht 160 cm; Wt 57.0 kg
[2019-05-10] MEDS ORDERED: SODIUM CHLORIDE 0.9% 1,000 ML IV ONE (13:26)
[2019-05-10] MEDS ORDERED: LORAZEPAM 2MG/ML CPJ IV ONE (13:30)
[2019-05-10 13:59] LABS: BASOPHILS % 0.3 % (0.0-2.0); EOSINOPHILS % 0.3 % (0.0-5.0); HEMATOCRIT. 44.1 % (36.0-48.0); LYMPHOCYTES % 18.5 % (20.0-50.0); MEAN CORPUSCULAR VOLUME 88.6 fL (81.0-99.0); MEAN PLATELET VOLUME 8.4 fl (7.4-10.4); MONOCYTES % 6.1 % (2.0-8.0); NEUTROPHILS % 74.8 % (40.0-76.0); PLATELET 317 x1000/uL (130-400); RED BLOOD CELL COUNT 4.98 mill/uL (4.2-5.4); RED CELL DISTRIBUTION WIDTH 14.1 % (11.6-14.6)
[2019-05-10 14:03] LABS: CHLORIDE 105 mEq/L (98-107)
[2019-05-10 14:06] LABS: ETHANOL BLOOD < 10 mg/dL
[2019-05-10 14:13] LABS: HCG SCREEN NEGATIVE
[2019-05-10] MEDS ORDERED: MAGNESIUM 2 G PREMIX 50 ML IV ONE (14:30)
[2019-05-10] MEDS ORDERED: POTASSIUM CHLORIDE 20MEQ TABLET SR PO ONE (14:30)
[2019-05-10 15:00] LABS: *AMPHETAMINES SCREEN URINE NEGATIVE (NEGATIVE)
[2019-05-10 15:01] LABS: *BARBITURATES SCREEN URINE NEGATIVE (NEGATIVE); *BENZODIAZEPINES SCREEN URINE NEGATIVE (NEGATIVE); METHADONE URINE SCREEN NEGATIVE (NEGATIVE)
[2019-05-10 15:02] LABS: OPIATES URINE SCREEN NEGATIVE (NEGATIVE); PHENCYCLIDINE URINE SCREEN NEGATIVE (NEGATIVE)
[2019-05-10 15:07] LABS: *COCAINE SCREEN URINE PRESUMTIVE POSITIVE (NEGATIVE); CANNABINOID URINE SCREEN PRESUMTIVE POSITIVE (NEGATIVE)
[2019-05-10] MEDS ORDERED: KETOROLAC 30MG/ML VIAL IV ONE (15:45)
[2019-05-10 17:44] VITALS: BP 111/68
== END 2019-05-10 17:48 | disposition home or self-care (01) ==
LOC: ER 13:11
DX: R07.89 Other chest pain (principal); E87.6 Hypokalemia; T40.5X1A Poisoning by cocaine, accidental (unintentional), initial encounter; F17.200 Nicotine dependence, unspecified, uncomplicated; F14.129 Cocaine abuse with intoxication, unspecified; F31.9 Bipolar disorder, unspecified; Y92.9 Unspecified place or not applicable; Z71.6 Tobacco abuse counseling
CPT/HCPCS: 36415; 71045; 80053; 80305; 80320; 83880; 84484; 84703; 85025; 93005; 96365; 96366; 96375; 99284; 99406; J1885; J2060; J3475; J7030; G0480